=== PATIENT | male | born 1930 | race Hispanic/Latino ===

== ENCOUNTER 2017-05-25 09:58 | Emergency (ER) | payer MEDICARE, OTHER ==
[2017-05-25 10:14] VITALS: TEMP 98.6
[2017-05-25] MEDS ORDERED: TDAP Vaccine 0.5 mL Syr IM ONE (10:37)
[2017-05-25] MEDS ORDERED: LIDOCAIN/EPI 1-0.001% 10ML INJ SOL IJ ONE (10:37)
--- NOTE | 2017-05-25 10:37 | ED PDOC ---
Arrival/HPI - General Historian: Patient - History of Present Illness Time/Duration: Prior to Arrival Context: Home - General Chief Complaint: Abnormal Skin Integrity Time Seen by Provider: 05/25/17 10:32 - History of Present Illness Narrative History of Present Illness (Text): 05/25/17 10:33 This 86 yo male with pmh CAD, COPD, HTN, chronic leg edema, presents to this ED c/o right lower leg laceration x DOSIMETRIST. Patient stated while taking automatic stair, he stumble and cut his leg with the border of metallic steps. Patient denies falling, or head injury. Denies dizziness, syncope, dysarthria, diplopia, weakness, or abnormal gait. (Deirdre Gilliam) Past Medical History - Provider Review Nursing Documentation Reviewed: Yes - Travel History If Yes, travel location?: [facility] - Cardiac Hx Congestive Heart Failure: Yes Hx [place]: Yes Hx Hypertension: Yes - Pulmonary Hx Chronic Obstructive Pulmonary Disease (COPD): Yes - Gastrointestinal Hx Gastroesophageal Reflux: Yes - Psychiatric Hx Substance Use: No - Surgical History Hx Appendectomy: Yes Hx Orthopedic Surgery: Yes (B/L knee placement) Family/Social History - Physician Review Nursing Documentation Reviewed: Yes Family/Social History: Other (non-contributory) Smoking Status: Never Smoked Hx Alcohol Use: Yes Frequency of alcohol use: Socially Hx Substance Use: No Allergies/Home Meds Allergies/Adverse Reactions: Allergies No Known Allergies Allergy (Verified 05/25/17 10:07) Home Medications: Home Meds Medication Instructions Recorded Confirmed Albuterol Sulfate [Proair Hfa] 2 puff NEB Q4 PRN 05/25/17 05/25/17 Aspirin [Ecotrin] 80 mg PO DAILY 05/25/17 05/25/17 Atorvastatin [Lipitor] 80 mg PO DAILY 05/25/17 05/25/17 Benazepril HCl [Lotensin] 205 mg PO DAILY 05/25/17 05/25/17 Clopidogrel [Plavix] 75 mg PO DAILY 05/25/17 05/25/17 Furosemide [Lasix] 40 mg PO DAILY 05/25/17 05/25/17 Metoprolol Succinate [Metoprolol 100 mg PO DAILY 05/25/17 05/25/17 Succinate] Montelukast [Singulair] 10 mg PO HS 05/25/17 05/25/17 Nitroglycerin [Nitrostat] 0.4 mg SL DAILY PRN 05/25/17 05/25/17 Pantoprazole [Protonix EC Tab] 40 mg PO DAILY 05/25/17 05/25/17 Potassium Chloride [K-Dur 20 mEq 20 meq PO DAILY 05/25/17 05/25/17 ER Tab] Umeclidinium Brm/Vilanterol Tr 1 puff NEB DAILY 05/25/17 05/25/17 [Anoro Ellipta 62.5-25 Mcg INH] Review of Systems - Review of Systems Constitutional: Normal. absent: Fatigue, Weight Change, Fevers Eyes: Normal ENT: Normal Respiratory: Normal Cardiovascular: Normal Gastrointestinal: Normal Genitourinary Male: Normal Musculoskeletal: Normal Skin: Laceration (see hpi) Neurological: Normal Endocrine: Normal Hemo/Lymphatic: Normal Psychiatric: Normal Physical Exam Temperature: Afebrile Blood Pressure: Normal Pulse: Regular Respiratory Rate: Normal Appearance: Positive for: Well-Appearing, Non-Toxic, Comfortable Pain Distress: None Mental Status: Positive for: Alert and Oriented X 3 - Systems Exam Head: Present: Atraumatic, Normocephalic, Other (no raccoon sign. no garcia sign) Pupils: Present: PERRL, Other (no hyphema) Extroacular Muscles: Present: EOMI. No: Entrapment Conjunctiva: Present: Normal Ears: Present: Normal, NORMAL TM, Other (nio hemotympanum) Mouth: Present: Moist Mucous Membranes Nose (External): Present: Atraumatic Nose (Internal): Present: Normal Inspection Neck: Present: Normal Range of Motion. No: Meningeal Signs, MIDLINE TENDERNESS , Paraspinal Tenderness Respiratory/Chest: Present: Clear to Auscultation, Good Air Exchange. No: Respiratory Distress, Accessory Muscle Use, Retracting, Rhonchi Cardiovascular: Present: Regular Rate and Rhythm, Normal S1, S2. No: Murmurs Abdomen: Present: Normal Bowel Sounds. No: Tenderness, Distention, Peritoneal Signs Back: Present: Normal Inspection. No: CVA Tenderness, Midline Tenderness, Paraspinal Tenderness, Pain with Leg Raise Upper Extremity: Present: Normal Inspection, Normal ROM, NORMAL PULSES, Neurovascularly Intact, Capillary Refill < 2s. No: Cyanosis, Edema Lower Extremity: Present: NORMAL PULSES, Normal ROM, Neurovascularly Intact, Capillary Refill < 2 s, Other ((+) left lateral lower leg V-shape laceration, approx. 7 cm. No deep structures involved). No: Edema, CALF TENDERNESS, Deformity Neurological: Present: GCS=15, CN II-XII Intact, Speech Normal, Motor Func Grossly Intact, Normal Sensory Function, Normal Cerebellar Funct, Gait Normal, Memory Normal Skin: Present: Warm, Dry, Normal Color, Laceration ((+) see LE). No: Rashes Psychiatric: Present: Alert, Oriented x 3, Normal Insight, Normal Concentration Vital Signs Temp Pulse Resp BP Pulse Ox 05/25/17 11:54 98.6 F 88 17 168/70 H 99 05/25/17 09:58 98.6 F 94 H 18 170/74 H 96 Medical Decision Making Re-evaluation Time: 11:25 Reassessment Condition: Re-examined, Improved ED Course and Treatment: 05/25/17 11:22 PROCEDURE: LACERATION REPAIR Performed by the emergency provider Location: right lower leg laceration Length: 7 cm Description: clean wound edges , no foreign bodies Distal CMS: Normal. No deficits. Neurovascularly intact. Anesthesia: Lidocaine 1% with Epi, approx. 3 cc Preparation: The wound was cleaned with NS and [place]. The area was prepped and draped in the usual sterile fashion. Exploration: The wound was explored and no foreign bodies were found. Procedure: The wound was closed with 3-0 nylon. There was good approximation. In total, 3 vertical mattress, and 5 regular interrupted sutures were used. Post-Procedure: Good closure and hemostasis. The patient tolerated the procedure well and there were no complications. CSM remains intact. Post procedure dressing applied 05/25/17 11:25 Re-evaluation. Patient denies fall dizziness, cp, sob, urinary symptoms, or syncope. Patient feels better. Discussed results and plan with patient who expresses understanding. All questions answered and there is agreement with the plan to discharge home with instructions. Patient stable for discharge. Return if symptoms persist or worsen. Patient understands wound check in 2 days by his PMD. Take medication as instructed. To have sutures removed in 12 days. To return to near ER is wound becomes infected (Deirdre Gilliam) I was available for consultation during PA evaluation. The chart was reviewed by me, and I agree with disposition. The documented history was done by the physician wet process miller head. The documented physical exam was done by the physician wet process miller head. The documented procedures were done by the physician wet process miller head. (Shahid Uribe) - Medication Orders Current Medication Orders: Discontinued Medications Amoxicillin/Clavulanate Potassium (Augmentin 875 Mg-125 Mg Tab) 1 tab PO STAT STA PRN Reason: Protocol Stop: 05/25/17 10:40 Last Admin: 05/25/17 10:50 Dose: 1 tab Tetanus/Reduced Diphtheria/Acell Pertussis (Boostrix Vaccine Inj) 0.5 ml IM .ONCE ONE Stop: 05/25/17 10:38 Last Admin: 05/25/17 10:46 Dose: 0.5 ml MAR Immunization Data Document 05/25/17 10:46 AB (Rec: 05/25/17 10:50 AB [id number]) Immunization Data Vaccine Lot Number [id number] Vaccine Expiration Date 03/09/19 Site Given Left Deltoid Route Intramuscular Immunization Units ml Disposition/Present on Arrival - Present on Arrival Any Indicators Present on Arrival: No History of DVT/PE: No History of Uncontrolled Diabetes: No Urinary Catheter: No History of Decub. Ulcer: No History Surgical Site Infection Following: None - Disposition Have Diagnosis and Disposition been Completed?: Yes Disposition Time: 11:27 Patient Plan: Discharge - Disposition Diagnosis: Laceration of right lower leg, Leg edema Disposition: HOME/ ROUTINE Condition: GOOD Discharge Instructions (ExitCare): Care For Your Stitches (ED), Laceration (ED) Additional Instructions: Call private doctor for wound check in 2-3 days. Keep wound clean and dry for 2 days, then clean wound daily with soap and water only, and do not use peroxide or alcohol. Sutures need to be removed in 12- 14 days. Return to emergency room if wound becomes infected, redness, discharge, painful. Take medication as instructed with food. Remove cecile bandage at bedtime. Prescriptions: Amoxicillin/Clavulanate [Augmentin 875 MG-125 MG] 1 tab PO BID #20 tab Referrals: Manolo Cash MD [Staff Provider] - Follow up with primary Forms: [employer] (Micronesian)
[2017-05-25] MEDS ORDERED: Amoxicillin-Clav 875-125 mg Tab PO STA (10:39)
[2017-05-25 11:55] VITALS: BP 168/70; PULSE 88; RESP 17; O2SAT 99
== END 2017-05-25 11:54 | disposition home or self-care (01) ==
LOC: ED 09:58
DX: S81.811A Laceration without foreign body, right lower leg, initial encounter (principal); W26.8XXA Contact with other sharp object(s), not elsewhere classified, initial encounter; Y93.89 Activity, other specified; Y92.89 Other specified places as the place of occurrence of the external cause; R60.0 Localized edema; Z23 Encounter for immunization